=== PATIENT | male | born 1955 | race Two or more races ===

== ENCOUNTER 2023-09-23 16:11 | Inpatient (IN) | payer MEDICARE, OTHER ==
[~2023-09-23] VITALS: Ht 193 cm; Wt 92.5 kg
[2023-09-23] MEDS: IOHEXOL 350 MG/ML 100ML IJ ONE (16:59)
[2023-09-23 17:46] VITALS: PULSE 62; RESP 13; O2SAT 95
[2023-09-23 18:35] LABS: Alanine Aminotransferase 35 U/L (7-40); Alkaline Phosphatase 99 U/L (46-116); Anion Gap 10 (5-15); Calcium 9.6 mg/dL (8.5-10.1); Carbon Dioxide 22 mmol/L (20-30); Chloride 106 mmol/L (98-107); Glucose 108 mg/dL (74-106); LDL Cholesterol 139 mg/dL (< 100); Magnesium 2.1 mg/dL (1.6-2.6); Potassium 3.9 mmol/L (3.5-5.1); Sodium 138 mmol/L (136-145); Triglycerides 164 mg/dL (< 150)
[2023-09-23 18:36] LABS: Albumin 4.5 g/dL (3.2-4.8); Aspartate Aminotransferase 16 U/L (13-40); BUN/Creatinine Ratio 12.9 (10.0-20.0); Bilirubin, Total 0.7 mg/dL (0.2-1.0); Blood Urea Nitrogen 13 mg/dL (9-23); Cholesterol 191 mg/dL (< 200); Creatine Kinase IFCC 86 U/L (46-171); HDL Cholesterol 36 mg/dL (40-59); Phosphorus 3.2 mg/dL (2.4-5.1); Total Protein 7.4 g/dL (5.7-8.2)
[2023-09-23 19:13] LABS: Basophils # (auto) 0.1 10 ^3/uL (0-0.2); Basophils % (auto) 0.8 % (0.0-2.0); Eosinophils # (auto) 0.4 10 ^3/uL (0-0.8); Eosinophils % (auto) 4.7 % (0.0-7.0); Hematocrit 45.1 % (41.0-53.0); Hemoglobin 15.4 g/dL (13.5-17.5); Lymphocytes # (auto) 1.7 10 ^3/uL (0.4-5.4); Lymphocytes % (auto) 19.2 % (10.0-50.0); Mean Corpuscular Hemoglobin 30.9 pg (28.0-32.0); Mean Corpuscular Hgb Conc. 34.2 g/dL (32.0-36.0); Mean Corpuscular Volume 90.3 fL (80.0-100.0); Monocytes # (auto) 0.6 10 ^3/uL (0-1.3); Monocytes % (auto) 7.2 % (0.0-12.0); Neutrophils # (auto) 5.9 10 ^3/uL (1.6-8.6); Neutrophils % (auto) 68.1 % (37.0-80.0); Nucleated Red Blood Cells % 0.2 %; Red Cell Distribution Width 13.6 % (11.8-14.3); White Blood Cell 8.7 10^3/uL (4.4-10.8)
[2023-09-23 19:19] LABS: INR 1.02 (0.9-1.15); Partial Thromboplastin Time 28.8 SEC (24.5-34.5); Prothrombin Time 10.8 sec (9.3-11.8)
[2023-09-23 19:37] LABS: Erythrocyte Sedimentation Rate 5 mm/hr (0-20)
[2023-09-23] MEDS ORDERED: ONDANSETRON HCL 4 MG/2 ML VIAL IV PRN (21:45)
[2023-09-23] MEDS: D5W/SOD CHLO 0.9% 1,000 ML IV SCH (21:45)
[2023-09-23] MEDS: MESTINON 60 MG PO SCH (22:00)
[2023-09-24 06:26] LABS: Basophils # (auto) 0.1 10 ^3/uL (0-0.2); Basophils % (auto) 1.2 % (0.0-2.0); Eosinophils # (auto) 0.5 10 ^3/uL (0-0.8); Eosinophils % (auto) 6.8 % (0.0-7.0); Hematocrit 44.9 % (41.0-53.0); Hemoglobin 15.1 g/dL (13.5-17.5); Lymphocytes # (auto) 1.7 10 ^3/uL (0.4-5.4); Lymphocytes % (auto) 25.1 % (10.0-50.0); Mean Corpuscular Hemoglobin 30.6 pg (28.0-32.0); Mean Corpuscular Hgb Conc. 33.6 g/dL (32.0-36.0); Mean Corpuscular Volume 91.1 fL (80.0-100.0); Monocytes # (auto) 0.7 10 ^3/uL (0-1.3); Monocytes % (auto) 10.3 % (0.0-12.0); Neutrophils # (auto) 3.9 10 ^3/uL (1.6-8.6); Neutrophils % (auto) 56.6 % (37.0-80.0); Nucleated Red Blood Cells % 0.2 %; Red Blood Cells 4.93 10^6/uL (4.5-5.90); Red Cell Distribution Width 13.9 % (11.8-14.3); White Blood Cell 6.9 10^3/uL (4.4-10.8)
[2023-09-24 06:36] LABS: Anion Gap 6 (5-15); Calcium 9.4 mg/dL (8.5-10.1); Carbon Dioxide 26 mmol/L (20-30); Chloride 105 mmol/L (98-107); Potassium 3.9 mmol/L (3.5-5.1); Sodium 137 mmol/L (136-145)
[2023-09-24 06:42] LABS: BUN/Creatinine Ratio 13.8 (10.0-20.0); Blood Urea Nitrogen 13 mg/dL (9-23); Glucose 94 mg/dL (74-106)
[2023-09-24 07:30] VITALS: PULSE 58; RESP 18; O2SAT 99
[2023-09-24] MEDS: LORazepam 2MG/ML-1ML VIAL IV ONE (09:00)
[2023-09-24] MEDS: LORazepam 2MG/ML-1ML VIAL ONE (09:15)
[2023-09-24] MEDS: ENOXAPARIN SOD 40 MG/0.4 ML SYRINGE SC SCH (10:00)
[2023-09-24 15:15] VITALS: PULSE 69; RESP 12
[2023-09-24 16:05] VITALS: BP 128/56; PULSE 64; RESP 16; TEMP 97.8; O2SAT 98
[2023-09-24 20:00] VITALS: BP 114/54; PULSE 66; RESP 16; RESP 18; TEMP 97.8; O2SAT 98
[2023-09-24 21:00] VITALS: BP 114/54; PULSE 66; RESP 16; TEMP 97.8; O2SAT 98
[2023-09-25 01:00] VITALS: BP 127/12; PULSE 61; RESP 20; TEMP 98.1; O2SAT 95
[2023-09-25 05:00] VITALS: BP 116/67; PULSE 65; RESP 20; TEMP 97.9; O2SAT 96
[2023-09-25 07:55] VITALS: O2SAT 98
[2023-09-25 09:00] VITALS: BP 118/69; PULSE 63; RESP 17; TEMP 97.5; O2SAT 96
[2023-09-25 11:42] VITALS: TEMP 36.4
== END 2023-09-25 13:25 | disposition home or self-care (01) | DRG 57 ==
LOC: ER 16:11 → OVERFLOW 21:45 → CENTRAL 09-24 15:02
PROVIDERS: ADMIT Nurse Practitioner; ATTEND Family Medicine
DX: G70.00 Myasthenia gravis without (acute) exacerbation (principal); H49.9 Unspecified paralytic strabismus; G70.80 Lambert-Eaton syndrome, unspecified; G90.2 Horner's syndrome; I10 Essential (primary) hypertension; R13.10 Dysphagia, unspecified; R49.0 Dysphonia; F17.200 Nicotine dependence, unspecified, uncomplicated; Z79.899 Other long term (current) drug therapy
CPT/HCPCS: 36415; 70450; 70496; 70551; 71250; 80048; 80053; 80061; 82550; 82962; 83735; 84100; 84439; 84443; 84484; 85025; 85610; 85652; 85730; 93005; 93306; 96361; 96374; 99291; G0378; J7042